=== PATIENT | female | born 1955 | race Caucasian/White ===

== ENCOUNTER 2019-05-05 07:16 | Outpatient (RCR) | payer OTHER, SELFPAY | END 2019-05-06 00:01 | LOC: ONCMED 07:16 | PROVIDERS: Family Provider Family Medicine; Visit Provider Internal Medicine Hematology & Oncology | DX: Z51.12 Encounter for antineoplastic immunotherapy (principal); C50.412 Malignant neoplasm of upper-outer quadrant of left female breast; M81.0 Age-related osteoporosis without current pathological fracture; Z17.1 Estrogen receptor negative status [ER-]; Z51.81 Encounter for therapeutic drug level monitoring; Z79.899 Other long term (current) drug therapy ==

== ENCOUNTER 2019-05-29 05:36 | Outpatient (RCR) | payer OTHER, SELFPAY ==
[2019-05-08 08:55] LABS: Basophils % 0.3 %; Eosinophils # 0.2 10^3/uL (0.0-0.8); Eosinophils % 2.7 %; Hematocrit 38.5 % (37.0-47.0); Hemoglobin 12.6 g/dL (11.5-15.3); Lymphocytes # 1.9 10^3/uL (0.8-4.8); Lymphocytes % 31.6 %; Mean Corpuscular HGB Conc 32.7 g/dL (30.0-36.0); Mean Corpuscular Hemoglobin 33.2 pg (28.0-34.0); Mean Corpuscular Volume 101.3 fL (81-99); Mean Platelet Volume 9.7 fL (7.4-10.4); Monocytes # 0.7 10^3/uL (0.2-0.9); Neutrophils # 3.2 10^3/uL (1.8-7.7); Neutrophils % 53.1 %; Nucleated Red Blood Cells % 0 %; Platelet Count 162 10^3/cmm (130-400)
[2019-05-08 09:03] LABS: Add RBC Morph No
[2019-05-08 09:12] LABS: Alanine Aminotransferase 22 U/L (0-33); Alkaline Phosphatase 102 IU/L (35-105); Anion Gap 14.6 (5-19); Aspartate Amino Transferase 30 U/L (0-32); Blood Urea Nitrogen 19 mg/dL (8-23); Calcium 9.8 mg/Dl (8.8-10.2); Carbon Dioxide 24 mmol/L (22-29); Chloride 100 mmol/L (98-107); Globulin 1.9 g/dL (1.3-4.6); Glucose 91 mg/dL (74-106); Potassium 4.6 mmol/L (3.5-5.1); Sodium 134 mmol/L (136-145); Total Bilirubin 0.3 mg/dL (0.15-1.2); Total Protein 6.9 g/dL (6.6-8.7)
[2019-05-09] MEDS: diphenhydrAMINE 25 mg Capsule PO (10:32)
[2019-05-09] MEDS: acetaminophen 325 mg Tablet 650 MG PO (10:32)
[2019-05-09] MEDS: benzonatate 100 mg Capsule 200 MG PO (10:53)
--- NOTE | 2019-05-11 23:54 | ONC FU_ITS ---
[facility] Patient Note Patient: Annalee Bal Unit #: [id number]: 1955 Dictated By: Delonte AguilarDate of Visit: May 09, 2019 Onc MED Follow-Up/Prog Note Chief Complaint: Breast cancer History of Present Illness: Mrs. Bal is a 63-year-old female who was recently diagnosed with left breast cancer. She recently underwent routine follow-up mammogram on 10/17/2017 which showed a small area in the left breast that was reported as suspicious. On 12/18/2017 she underwent stereotactic/image guided biopsy, which showed infiltrating ductal carcinoma ER/RI negative HER-2/laura positive. Mrs Bal then underwent lumpectomy with sentinel lymph node biopsy per Dr Tello on 01/10/2018. The pathology showed 1.7 x 1.6 cm tumor, with negative sentinel lymph nodes. Menarche at age 13 and first at age 15 and she has never used hormonal supplement and no family history of breast cancer. Mild peripheral neuropathy involving lower extremities especially feet more on the right side, history of disc bulge required no treatment in the past. recommended post lumpectomy/sentinel lymph node biopsy , adjuvant chemotherapy.. She has completed 4 cycles of Adriamycin Cytoxan and weekly Taxol/Herceptin ???12 starting 05/23/18 till 08/15/18 3 weekly Herceptin for 9 months was started on 09/06/2018 s/p postlumpectomy radiation therapy Completed on 10/29/2018 She reported that she fallen in the past as she was trying to step up on a sidewalk and my legs just gave out and fell on my knees.Was evaluated by orthopedics and on 08/19/2018, had right shoulder radiological studies which showed mild right AC joint arthropathy, no acute fracture. She began the Herceptin on 05/23/18. She has completed her radiation therapy and is now on single agent Herceptin. Echo done on 02/06/2019 showed ejection fraction 55% when compared with one from 09/12/2018 showed no change She has been having some lower extremity weakness for sometime now and is seeing neurology In [place] and as per patient she was told about bulging disc causing nerve compression in lower back and now nerve conduction studies of lower extremities is under consideration s/p physical therapy without much help as far as mild to mod numbness in feet is concern Ms. Bal is here today for follow-up. She is due for single agent Herceptin. Her last dose of Herceptin will be in 3 weeks. She will completed a year that time. She did have follow-up echocardiogram on 05/05/2019 which reported an ejection fraction of 55 to 60%. She denies any new concerns. She also had a DEXA scan on 05/02/2019 which she reports a bone mineral density of L1 L4 of T score -2.2 and left femoral neck bone mineral density measured T score of -1.2. Mean femoral neck bone density T score was 1.0 and right femoral neck bone mineral density was T score -0.9. The FRAX calculated 10-year probability for major osteoporotic fracture is 17.5% and osteoporotic hip fracture is 3.8%. Since 2015 bone mineral density lumbar spine has decreased by -4.1% and -1.2% in the femoral necks . Her main concern today is that she has had quite a bit of sinus congestion and cough. She states the cough is been keeping her up at night. She has had some chilling but has had no documented fever. She states that her work has been passing around the respiratory staff. She states her appetite is poor currently because she cannot taste very well due to the sinus infection. She states that she is had no trouble swallowing but her throat is little scratchy at times. She has had some productive cough of greenish sputum. She states is gotten worse the last couple days and Mucinex does not seem to be helping. She states she gets this every time of the year and I do recall her having it last winter as well. She denies nausea or vomiting. She has had no lower extremity edema. She denies any shortness of breath or orthopnea. She states overall she is doing well. She states that if she did not have sinus concerns, she would feel good. She denies any pain. She still tries to work full-time but is off the next couple of days for the holidays. She states overall she is feels that she is doing relatively well and is somewhat anxious about completing her Herceptin in 3 weeks. She states it will be a relief not to have to come to the office so frequently but then again she is not sure what she will do when she does not come the office so frequently. Her ECOG is 0. Past Medical History: Anxiety Chronic obstructive pulmonary disease Depression Enlarged thyroid Hypercholesterolemia Mitral valve prolapse Osteoporosis Past Surgical History: Tonsillectomy Tubal ligation Left breast biopsy in 2018 Portacatheter placement () in 2017 Colonoscopy in 2013 Allergies: PCN Medications: Activite EC 1 Tablet (of 1 mg) Oral daily BuPROPion HCl ER (XL) 1 Tablet (of 300 mg) Tablet SR 24 HR Oral daily Cranberry Plus Vitamin C 1 Capsule (of 4200-20-3 mg - mg - Units) Oral daily Gabapentin (300 mg) Tablet Oral t.i.d. LORazepam 1 Tablet (of 1 mg) Oral PRN Milk Thistle 1 Capsule (of 175 mg) Oral b.i.d. Ocuvite Adult Formula 1 Capsule Oral daily Pravastatin Sodium 1 Tablet (of 80 mg) Oral daily Probiotic Daily 1 Capsule Oral daily TraZODone HCl 1 - 3 Tablet (of 100 mg) Oral at bedtime Zinc Tablet Oral Family History: Ms. Bal's mother is : stroke. Ms. Bal's father at age 89: prostate cancer. Her paternal grandmother is : cervical cancer. Social History: Ms. aBl is single and she is a [employer]. Ms. Bal no longer smokes but had smoked 2.5 packs/day for 35 years. She drinks daily. She consumes 3 drinks/day 7 days/week. Review Of Symptoms: Constitutional Denies fevers, chills, night sweats, excessive fatigue or weight loss. Allergic/Immunologic No reactions. Eyes Denies significant visual changes. No diplopia. No amaurosis. ENMT Denies changes in hearing, sore throat, mouth sores, difficulty or changes in swallowing ability. Has had significant, discolored sinus drainage for about 1 week now-getting worse. Hematologic/Lymphatic Denies easy bruising or bleeding. The patient denies any tender or palpable lymph nodes. Respiratory Denies dyspnea on exertion, chest pain or hemoptysis. Denies orthopnea. Persistent coughing keeping her up at night. No wheezing currently. Cardiovascular Denies anginal chest pain, palpitations or orthopnea. Gastrointestinal Denies nausea, vomiting, diarrhea, GI bleeding, or constipation. Denies change in bowel habits and/or stool color, no heartburn or early satiety. Genitourinary (F) No hematuria, hesitancy, incontinence, vaginal bleeding, discharge or other problems with urination. Musculoskeletal right knee pain is persistent and limits her activity at times. She has not had any work up of the knee and wants to try doing water aerobics before pursing any work up. Integumentary Denies chronic rashes, inflammation, ulcerations or skin changes. Neurologic Denies headache, blurred vision, and no areas of focal weakness or numbness. Normal gait. No sensory problems. Psychiatric Denies insomnia, depression, sulma or mood swings. Vital Signs: Performed on May 09, 2019 09:12 Height - 71.00 in Weight - 174.4 lbs (LOW) BSA - 1.99 sq.m BMI - 24.32 Temperature - 98.6 F Pulse - 81 /min Respiration - 14 /min BP - 136/72 mm(hg) O2 Sat - 96 % Pain - 0 Fatigue - 6,1 - No physically strenuous activity, but ambulatory and able to carry out light or sedentary work (e.g. office work, light house work). (ECOG) Physical Examination: Constitutional Alert, oriented, no acute distress. Skin pink, warm and dry. Head Normocephalic; atraumatic. Eyes Conjunctivae and sclerae are clear and without icterus. Pupils are reactive and equal. Neck Supple without masses or thyromegaly. No jugular venous distension. Hematologic/Lymphatic No petechiae or purpura. No tender or palpable lymph nodes in the cervical or supraclavicular areas. Respiratory Lungs are diminished to auscultation without rhonchi or wheezing currently. Cardiovascular Regular rate and rhythm of heart without murmurs,clicks, gallops or rubs. Chest Right subclavian venous access device is unremarkable Back/Spine Non-tender to palpation. Extremities No visible deformities, no cyanosis, clubbing or edema. Musculoskeletal No tenderness or swelling, normal range of motion without obvious weakness. Integumentary No rashes or lesions. Neurologic No sensory or motor deficits, normal cerebellar function, normal gait. Psychiatric Alert and oriented times three. Coherent speech. Verbalizes understanding of our discussions today. Laboratory:Test performed on May 08, 2019 08:15 Glucose 91 mg/dL BUN 19 mg/dL Creatinine 0.9 mg/dL Cr Clearance (Est) 83.20 mL/min Sodium 134 mmol/L Potassium 4.6 mmol/L Chloride 100 mmol/L CO2 24 mmol/L Calcium 9.8 mg/dL Protein, Total 6.9 g/dL Albumin 5.0 g/dL Globulin 1.9 g/dL A/G Ratio 0.3 Absolute Value Bilirubin, Total 0.3 mg/dL Alkaline Phosphatase 102 IU/L AST (SGOT) 30 IU/L ALT (SGPT) 22 IU/L WBC 6.0 10^9/L RBC 3.80 10^12/L HGB 12.6 g/dL HCT 38.5 % MCV 101.3 fl MCH 33.2 pg MCHC 32.7 g/dL RDW 13.0 % Platelet Count 162 10^9/L MPV 9.7 fL Neutrophils (Gran) 3.2 10^9/L Lymphocytes 1.9 10^9/L Monocytes 0.7 10^9/L Eosinophils 0.2 10^9/L Basophils 0.0 10^9/L Manual Lymphocytes 31.6 % Manual Monocytes 12.0 % Manual Eosinophils 2.7 % Manual Basophils 0.3 % NRBCs 0.0 /100 WBC Test performed on Dec 27, 2018 08:10 TSH 1.28 uIU/mL Vitamin D (25-Hydroxy), Total 55 ng/mL Impression: Infiltrating ductal carcinoma off left breast status post lumpectomy with sentinel lymph node biopsy done on 01/10/2018, final pathology report showed size of tumor 1.7 x 1.6 cm, T1c, 0 out of 2 sentinel lymph nodes showed metastatic disease N0 Ki-67 31%, ER negative, RI negative, HER-2/laura 3+ As per mammogram done on 10/17/2017 showed left breast nodule measured 13 mm and ultrasound confirmed mass being 1 x 1.1 cm in size. s/p Cytoxan/Adriamycin x4 followed by Taxol/Herceptin x 12 weeks completed on 08/15/18 She began her first cycle of Cytoxan/Adriamycin on 02/28/2018 requested MRI of the brain due to persistent headaches, off balance/wobbly gait , and blurry vision. CANCER TREATMENT HISTORY: 1. Dose dense Adriamycin Cytoxan for 4 cycles beginning on 02/28/18. 2. 12 weeks of paclitaxel/Herceptin beginning 05/23/2018. completed 12 weeks of paclitaxel/Herceptin on 08/15/2018 3 Started on 3 weekly Herceptin for 9 months on 09/06/2018 Follow-up echocardiogram done on 05/05/2019 showed normal left ventricle size and ejection fraction, 55-602% compared to previous study on 09/2018, no significant change. She has tolerated the Herceptin well. However she does present today with acute sinus infection/URI. Plan: 1. Proceed with single agent Herceptin today. She will complete her treatment plan at the end of May 2019. 2. I have sent in a prescription for Tessalon Perles 200 mg 3 times daily. She could have 1 here in the clinic today if she develops coughing while here. I also have asked her to do the Levaquin 500 mg daily. She states this is worked wonders for her in the past. 3. May 08, 2019 labs reviewed in detail and discussed with Mrs. Bal and a copy was given to her. WBC 6.0, hemoglobin 12.6, platelets 262,000 ANC is 3200 potassium 3.4 creatinine 0.9 LFTs are all normal. 4. We did discuss her echocardiogram and her bone density copies of which were given to her. Her echocardiogram was unchanged and most likely will need to get another one at her 3-month follow-up just for comparison. We did discuss her bone density at length. Most likely she is going to need treatment for this. She will see Dr. Lundberg back in 3 weeks at which time we can decide if she wants to do Prolia or Reclast or another agent. 4. We will plan to see her back in 3 weeks with CBC and CMP. 5. Ms. Cespedes was instructed to contact us in the interim for questions or problems arise. 6. She is having knee pain but does not want to get it evaluated just yet. She wants to try water aerobics and light exercise. She states she has not had any workup on the knee anastasiia has had physical therapy which did not help at all . Signed By: Delonte Aguilar-, [facility] Aurora Lundberg MD <<Signature on File>>
[2019-05-28 13:42] LABS: Basophils % 0.2 %; Eosinophils % 0.6 %; Hematocrit 34.6 % (37.0-47.0); Hemoglobin 11.4 g/dL (11.5-15.3); Lymphocytes # 1.3 10^3/uL (0.8-4.8); Lymphocytes % 21.5 %; Mean Corpuscular HGB Conc 32.9 g/dL (30.0-36.0); Mean Corpuscular Hemoglobin 32.8 pg (28.0-34.0); Mean Corpuscular Volume 99.4 fL (81-99); Mean Platelet Volume 9.7 fL (7.4-10.4); Monocytes # 0.5 10^3/uL (0.2-0.9); Monocytes % 7.9 %; Neutrophils # 4.3 10^3/uL (1.8-7.7); Neutrophils % 69.5 %; Nucleated Red Blood Cells % 0 %; Platelet Count 179 10^3/cmm (130-400); Red Blood Count 3.48 10^6/uL (4.1-5.3); Red Cell Distribution Width 13.1 % (12.1-15.1); White Blood Count 6.2 10^3/uL (4.0-10.0)
[2019-05-28 13:56] LABS: Alanine Aminotransferase 22 U/L (0-33); Albumin Level 4.2 g/dL (3.5-5.2); Alkaline Phosphatase 97 IU/L (35-105); Anion Gap 11.2 (5-19); Aspartate Amino Transferase 27 U/L (0-32); Blood Urea Nitrogen 15 mg/dL (8-23); Calcium 9.6 mg/Dl (8.8-10.2); Carbon Dioxide 26 mmol/L (22-29); Chloride 102 mmol/L (98-107); Globulin 2.8 g/dL (1.3-4.6); Glomerular Filtration Rate 72.2 mL/min (90-130); Glucose 114 mg/dL (74-106); Potassium 4.2 mmol/L (3.5-5.1); Sodium 135 mmol/L (136-145); Total Bilirubin 0.3 mg/dL (0.15-1.2)
[2019-05-29] MEDS: sodium chloride 0.9% 250 ML 75 ML IV (11:40)
[2019-05-29] MEDS: acetaminophen 325 mg Tablet 650 MG PO (11:40)
[2019-05-29] MEDS: diphenhydrAMINE 25 mg Capsule PO (11:45)
--- NOTE | 2019-05-29 13:13 | ONC FU_ITS ---
Dr. Lundberg follow up note Patient: Annalee Bal Unit #: [id number]: 1955 Dicatated By: Aurora Lundberg M.D.Date of Visit:May 29, 2019 Onc Med Follow-up/Prog Note History of Present Illness: Mrs. Bal is a 63-year-old female who was recently diagnosed with left breast cancer. She recently underwent routine follow-up mammogram on 10/17/2017 which showed a small area in the left breast that was reported as suspicious. On 12/18/2017 she underwent stereotactic/image guided biopsy, which showed infiltrating ductal carcinoma ER/WI negative HER-2/laura positive. Mrs Bal then underwent lumpectomy with sentinel lymph node biopsy per Dr Tello on 01/10/2018. The pathology showed 1.7 x 1.6 cm tumor, with negative sentinel lymph nodes. Menarche at age 13 and first at age 15 and she has never used hormonal supplement and no family history of breast cancer. Mild peripheral neuropathy involving lower extremities especially feet more on the right side, history of disc bulge required no treatment in the past. recommended post lumpectomy/sentinel lymph node biopsy , adjuvant chemotherapy.. She has completed 4 cycles of Adriamycin Cytoxan and weekly Taxol/Herceptin ???12 starting 05/23/18 till 08/15/18 3 weekly Herceptin for 9 months was started on 09/06/2018 And completed on 05/29/2019 s/p postlumpectomy radiation therapy Completed on 10/29/2018 She reported that she fallen in the past as she was trying to step up on a sidewalk and my legs just gave out and fell on my knees.Was evaluated by orthopedics and on 08/19/2018, had right shoulder radiological studies which showed mild right AC joint arthropathy, no acute fracture. She began the Herceptin on 05/23/18. She has completed her radiation therapy and is now on single agent Herceptin. Echo done on 02/06/2019 showed ejection fraction 55% when compared with one from 09/12/2018 showed no change She has been having some lower extremity weakness for sometime now and is seeing neurology In [place] and as per patient she was told about bulging disc causing nerve compression in lower back and now nerve conduction studies of lower extremities is under consideration s/p physical therapy without much help as far as mild to mod numbness in feet is concern She did have follow-up echocardiogram on 05/05/2019 which reported an ejection fraction of 55 to 60%. She also had a DEXA scan on 05/02/2019 which she reports a bone mineral density of L1 L4 of T score -2.2 and left femoral neck bone mineral density measured T score of -1.2. Mean femoral neck bone density T score was 1.0 and right femoral neck bone mineral density was T score -0.9. The FRAX calculated 10-year probability for major osteoporotic fracture is 17.5% and osteoporotic hip fracture is 3.8%. Since 2015 bone mineral density lumbar spine has decreased by -4.1% and -1.2% in the femoral necks . Came for follow-up, denies any specific complaint, no fever or chills, no nausea or vomiting, no diarrhea constipation, no new bony pains, sinus discharge is improving too. No leg swelling, no shortness of breath or palpitation. Tolerating Herceptin well Medications: Activite EC 1 Tablet (of 1 mg) Oral daily, BuPROPion HCl ER (XL) 1 Tablet (of 300 mg) Tablet SR 24 HR Oral daily, Cranberry Plus Vitamin C 1 Capsule (of 4200-20-3 mg - mg - Units) Oral daily, Gabapentin (300 mg) Tablet Oral t.i.d., LORazepam 1 Tablet (of 1 mg) Oral PRN, Milk Thistle 1 Capsule (of 175 mg) Oral b.i.d., Ocuvite Adult Formula 1 Capsule Oral daily, Pravastatin Sodium 1 Tablet (of 80 mg) Oral daily, Probiotic Daily 1 Capsule Oral daily, TraZODone HCl 1 - 3 Tablet (of 100 mg) Oral at bedtime, Zinc Tablet Oral Allergies: PCN Review of Systems: Constitutional - Appetite is fair and weight is stable. No fever, chills, hot flashes, or night sweats. Energy level is good, ENMT - Negative for sinus congestion and drainage. No mouth sores. No sore throat or difficulty swallowing, Hematologic/Lymphatic - No abnormal bruising or bleeding, Respiratory - No shortness of breath. No cough. No pleuritic pain or hemoptysis, Cardiovascular - No angina pain. No palpitations, Gastrointestinal - No nausea or vomiting. No heartburn or acid reflux. No diarrhea or constipation. No blood in the stool or black stools, Genitourinary (F) - No dysuria or hematuria. No urinary frequency. No urgency or incontinence, Musculoskeletal - Positive for bilateral knee pain, Integumentary - Pt denies edema, Neurologic - No headache or dizziness. Pt reports neuropathy in feet, Psychiatric - Patient has some anxiety, no depression. Some insomnia. Vital Signs: Performed on May 29, 2019 09:26 Height - 71.00 in Weight - 177.2 lbs (HIGH) BSA - 2.00 sq.m BMI - 24.71 Temperature - 98.0 F (LOW) Pulse - 73 /min Respiration - 20 /min BP - 142/72 mm(hg) (HIGH) O2 Sat - 98 % Pain - 6 Performance Status: 0 - Fully active, able to carry on all predisease activities without restrictions. (ECOG) Physical Examination: Respiratory - Lungs are clear to auscultation without rhonchi or wheezing, Cardiovascular - Regular rate and rhythm of heart, Extremities - no edema. Lab/Imaging: Test performed on May 28, 2019 13:15 Alkaline Phosphatase 97 IU/L Sodium 135 mmol/L Potassium 4.2 mmol/L Chloride 102 mmol/L CO2 26 mmol/L Anion Gap 11.2 BUN 15 mg/dL Creatinine 0.8 mg/dL Cr Clearance (Est) 93.6100 mL/min eGFR 72.2 mL/min Glucose 114 mg/dL Calcium 9.6 mg/Dl Protein, Total 7.0 g/dL Albumin 4.2 g/dL Globulin 2.8 g/dL Bilirubin, Total 0.3 mg/dL ALT (SGPT) 22 U/L AST (SGOT) 27 U/L WBC 6.2 10 3/uL RBC 3.48 10 6/uL HGB 11.4 g/dL HCT 34.6 % MCV 99.4 fL MCH 32.8 pg MCHC 32.9 g/dL RDW 13.1 % Platelet Count 179 10 3/cmm MPV 9.7 fL Neutrophils 4.3 10 3/uL Lymphocytes 1.3 10 3/uL Monocytes 0.5 10 3/uL Eosinophils 0.0 10 3/uL Basophils 0.0 10 3/uL Neutrophil % 69.5 % Lymphocyte % 21.5 % Monocyte % 7.9 % Eosinophil % 0.6 % Basophils % 0.2 % Test performed on May 08, 2019 08:15 A/G Ratio 0.3 Absolute Value Manual Lymphocytes 31.6 % Manual Monocytes 12.0 % Manual Eosinophils 2.7 % Manual Basophils 0.3 % NRBCs 0.0 /100 WBC Test performed on Dec 27, 2018 08:10 TSH 1.28 uIU/mL Vitamin D (25-Hydroxy), Total 55 ng/mL Impression: Infiltrating ductal carcinoma off left breast status post lumpectomy with sentinel lymph node biopsy done on 01/10/2018, final pathology report showed size of tumor 1.7 x 1.6 cm, T1c, 0 out of 2 sentinel lymph nodes showed metastatic disease N0 Ki-67 31%, ER negative, WI negative, HER-2/laura 3+ As per mammogram done on 10/17/2017 showed left breast nodule measured 13 mm and ultrasound confirmed mass being 1 x 1.1 cm in size. s/p Cytoxan/Adriamycin x4 followed by Taxol/Herceptin x 12 weeks completed on 08/15/18 She began her first cycle of Cytoxan/Adriamycin on 02/28/2018 requested MRI of the brain due to persistent headaches, off balance/wobbly gait , and blurry vision. CANCER TREATMENT HISTORY: 1. Dose dense Adriamycin Cytoxan for 4 cycles beginning on 02/28/18. 2. 12 weeks of paclitaxel/Herceptin beginning 05/23/2018. completed 12 weeks of paclitaxel/Herceptin on 08/15/2018 3 Started on 3 weekly Herceptin for 9 months on 09/06/2018 And completed year-long Herceptin therapy on 05/29/2019 Follow-up echocardiogram done on 05/05/2019 showed normal left ventricle size and ejection fraction, 55-602% compared to previous study on 09/2018, no significant change. Plan: Discussed with patient regarding her labs white blood count 6.2 hemoglobin 11.4 crit 34.8 platelets 179,000 CMP within normal limits Clinically, patient doing well with no signs symptoms suggestive of recurrence of disease, now being treated with adjuvant Herceptin therapy. We'll proceed with next and final dose of year-long Herceptin therapy today and then she will return to clinic in 3 months with CBC CMP in the meantime continue with port maintenance on monthly basis. As far as osteopenia pain is concern , we'll start her on vitamin D/calcium supplement, role of biphosphonate also discussed patient was her try vitamin D and calcium and a regular exercise if with that her loss and on improve and she will consider biphosphonate. Signed By: Aurora Lundberg M.D. <<Signature on File>>
== END 2019-06-06 23:59 | disposition home or self-care (01) ==
LOC: ONCMED 05:36
PROVIDERS: Internal Medicine Medical Oncology; Family Provider Family Medicine; Visit Provider Internal Medicine Hematology & Oncology
DX: Z51.12 Encounter for antineoplastic immunotherapy (principal); C50.412 Malignant neoplasm of upper-outer quadrant of left female breast; Z17.1 Estrogen receptor negative status [ER-]; F41.8 Other specified anxiety disorders; J44.9 Chronic obstructive pulmonary disease, unspecified; E78.00 Pure hypercholesterolemia, unspecified; I34.1 Nonrheumatic mitral (valve) prolapse; M81.0 Age-related osteoporosis without current pathological fracture; F10.20 Alcohol dependence, uncomplicated; Z87.891 Personal history of nicotine dependence; Z91.81 History of falling; Z92.3 Personal history of irradiation
CPT/HCPCS: 36591; 80053; 85025; 96413; 99214; J7050; J9355

== ENCOUNTER 2019-06-27 05:49 | Outpatient (RCR) | payer OTHER, SELFPAY | END 2019-07-05 23:59 | disposition home or self-care (01) | LOC: ONCMED 05:49 | PROVIDERS: Family Provider Family Medicine; PCP Nurse Practitioner Family; Visit Provider Internal Medicine Hematology & Oncology | DX: Z45.2 Encounter for adjustment and management of vascular access device (principal) | CPT/HCPCS: 96523 ==

== ENCOUNTER 2019-07-25 06:09 | Outpatient (RCR) | payer OTHER, SELFPAY | END 2019-08-05 23:59 | disposition home or self-care (01) | LOC: ONCMED 06:09 | PROVIDERS: Family Provider Family Medicine; PCP Nurse Practitioner Family; Visit Provider Internal Medicine Hematology & Oncology | DX: Z45.2 Encounter for adjustment and management of vascular access device (principal) | CPT/HCPCS: 96523 ==

== ENCOUNTER 2019-09-02 06:59 | Outpatient (CLI) | payer OTHER, SELFPAY ==
[2019-09-02 08:25] LABS: Basophils % 0.6 %; Eosinophils # 0.2 10^3/uL (0.0-0.8); Eosinophils % 2.5 %; Hematocrit 39.8 % (37.0-47.0); Lymphocytes # 1.5 10^3/uL (0.8-4.8); Lymphocytes % 22.8 %; Mean Corpuscular HGB Conc 32.7 g/dL (30.0-36.0); Mean Corpuscular Hemoglobin 32.6 pg (28.0-34.0); Mean Corpuscular Volume 99.7 fL (81-99); Mean Platelet Volume 9.8 fL (7.4-10.4); Monocytes # 0.7 10^3/uL (0.2-0.9); Monocytes % 10.4 %; Neutrophils # 4.3 10^3/uL (1.8-7.7); Neutrophils % 63.3 %; Nucleated Red Blood Cells % 0 %; Platelet Count 179 10^3/cmm (130-400); Red Blood Count 3.99 10^6/uL (4.1-5.3); Red Cell Distribution Width 13.1 % (12.1-15.1); White Blood Count 6.7 10^3/uL (4.0-10.0)
[2019-09-02 08:42] LABS: Alanine Aminotransferase 26 U/L (0-33); Albumin Level 4.4 g/dL (3.5-5.2); Alkaline Phosphatase 87 IU/L (35-105); Anion Gap 17.6 (5-19); Aspartate Amino Transferase 29 U/L (0-32); Blood Urea Nitrogen 16 mg/dL (8-23); Calcium 9.6 mg/dL (8.5-10.5); Carbon Dioxide 24 mmol/L (22-29); Chloride 99 mmol/L (98-107); Globulin 2.8 g/dL (1.3-4.6); Glomerular Filtration Rate 72.2 mL/min (90-130); Glucose 118 mg/dL (65-115); Osmolality Calculated 279 mOsm/kg (285-295); Potassium 4.6 mmol/L (3.5-5.1); Sodium 136 mmol/L (136-145); Total Bilirubin 0.2 mg/dL (0.15-1.2); Total Protein 7.2 g/dL (6.6-8.7)
== END 2019-09-02 07:00 | disposition home or self-care (01) ==
PROVIDERS: Family Provider Family Medicine; PCP Nurse Practitioner Family; Visit Provider Internal Medicine Hematology & Oncology
DX: C50.412 Malignant neoplasm of upper-outer quadrant of left female breast (principal); T45.1X5A Adverse effect of antineoplastic and immunosuppressive drugs, initial encounter; D70.1 Agranulocytosis secondary to cancer chemotherapy; K59.03 Drug induced constipation; D64.9 Anemia, unspecified
CPT/HCPCS: 36591; 80053; 85025

== ENCOUNTER 2019-09-03 13:21 | Outpatient (CLI) | payer OTHER, SELFPAY ==
--- NOTE | 2019-09-03 14:15 | ONC FU_ITS ---
Dr. Lundberg follow up note Patient: Annalee Bal Unit #: [id number]: 1955 Dicatated By: Aurora Lundberg M.D.Date of Visit:Sep 03, 2019 Onc Med Follow-up/Prog Note History of Present Illness: Mrs. Bal is a 63-year-old female who was recently diagnosed with left breast cancer. She recently underwent routine follow-up mammogram on 10/17/2017 which showed a small area in the left breast that was reported as suspicious. On 12/18/2017 she underwent stereotactic/image guided biopsy, which showed infiltrating ductal carcinoma ER/[place] negative HER-2/laura positive. Mrs Bal then underwent lumpectomy with sentinel lymph node biopsy per Dr Tello on 01/10/2018. The pathology showed 1.7 x 1.6 cm tumor, with negative sentinel lymph nodes. Menarche at age 13 and first at age 15 and she has never used hormonal supplement and no family history of breast cancer. Mild peripheral neuropathy involving lower extremities especially feet more on the right side, history of disc bulge required no treatment in the past. recommended post lumpectomy/sentinel lymph node biopsy , adjuvant chemotherapy.. She has completed 4 cycles of Adriamycin Cytoxan and weekly Taxol/Herceptin ???12 starting 05/23/18 till 08/15/18 3 weekly Herceptin for 9 months was started on 09/06/2018 And completed on 05/29/2019 s/p postlumpectomy radiation therapy Completed on 10/29/2018 She reported that she fallen in the past as she was trying to step up on a sidewalk and my legs just gave out and fell on my knees.Was evaluated by orthopedics and on 08/19/2018, had right shoulder radiological studies which showed mild right AC joint arthropathy, no acute fracture. She began the Herceptin on 05/23/18. She has completed her radiation therapy and is now on single agent Herceptin. Echo done on 02/06/2019 showed ejection fraction 55% when compared with one from 09/12/2018 showed no change She has been having some lower extremity weakness for sometime now and is seeing neurology In [place] and as per patient she was told about bulging disc causing nerve compression in lower back and now nerve conduction studies of lower extremities is under consideration s/p physical therapy without much help as far as mild to mod numbness in feet is concern She did have follow-up echocardiogram on 05/05/2019 which reported an ejection fraction of 55 to 60%. She also had a DEXA scan on 05/02/2019 which she reports a bone mineral density of L1 L4 of T score -2.2 and left femoral neck bone mineral density measured T score of -1.2. Mean femoral neck bone density T score was 1.0 and right femoral neck bone mineral density was T score -0.9. The FRAX calculated 10-year probability for major osteoporotic fracture is 17.5% and osteoporotic hip fracture is 3.8%. Since 2015 bone mineral density lumbar spine has decreased by -4.1% and -1.2% in the femoral necks . Came for follow-up, denies any specific complaints, no fever or chills, no diarrhea constipation, no new bony pains, appetite is good Medications: Activite EC 1 Tablet (of 1 mg) Oral daily, BuPROPion HCl ER (XL) 1 Tablet (of 300 mg) Tablet SR 24 HR Oral daily, Cranberry Plus Vitamin C 1 Capsule (of 4200-20-3 mg - mg - Units) Oral daily, Gabapentin (300 mg) Tablet Oral t.i.d., Glucosamine Tablet Oral, LORazepam 1 Tablet (of 1 mg) Oral PRN, Milk Thistle 1 Capsule (of 175 mg) Oral b.i.d., Ocuvite Adult Formula 1 Capsule Oral daily, Pravastatin Sodium 1 Tablet (of 80 mg) Oral daily, Probiotic Daily 1 Capsule Oral daily, TraZODone HCl 1 - 3 Tablet (of 100 mg) Oral at bedtime Allergies: PCN Review of Systems: Constitutional - Appetite is fair and weight is stable. No fever, chills, hot flashes, or night sweats. Energy level is good, ENMT - Negative for sinus congestion and drainage. No mouth sores. No sore throat or difficulty swallowing, Hematologic/Lymphatic - No abnormal bruising or bleeding, Respiratory - No shortness of breath. No cough. No pleuritic pain or hemoptysis, Cardiovascular - No angina pain. No palpitations, Gastrointestinal - No nausea or vomiting. No heartburn or acid reflux. No diarrhea or constipation. No blood in the stool or black stools, Genitourinary (F) - No dysuria or hematuria. No urinary frequency. No urgency or incontinence, Musculoskeletal - Positive for bilateral knee pain, Integumentary - Pt denies edema, Neurologic - No headache or dizziness. Pt reports neuropathy in feet, Psychiatric - Patient has some anxiety, no depression. Some insomnia. Vital Signs: Performed on Sep 03, 2019 13:39 Height - 71.00 in Weight - 173.6 lbs (LOW) BSA - 1.99 sq.m BMI - 24.21 Temperature - 97.8 F (LOW) Pulse - 87 /min Respiration - 19 /min BP - 136/74 mm(hg) O2 Sat - 95 % (LOW) Pain - 3 Performance Status: 0 - Fully active, able to carry on all predisease activities without restrictions. (ECOG) Physical Examination: Respiratory - Lungs are clear, Cardiovascular - denies tachycardia or palpitation, Extremities - no visible edema or rash. Lab/Imaging: Test performed on May 28, 2019 13:15 Alkaline Phosphatase 97 IU/L Sodium 135 mmol/L Potassium 4.2 mmol/L Chloride 102 mmol/L CO2 26 mmol/L Anion Gap 11.2 BUN 15 mg/dL Creatinine 0.8 mg/dL Cr Clearance (Est) 93.6100 mL/min eGFR 72.2 mL/min Glucose 114 mg/dL Calcium 9.6 mg/Dl Protein, Total 7.0 g/dL Albumin 4.2 g/dL Globulin 2.8 g/dL Bilirubin, Total 0.3 mg/dL ALT (SGPT) 22 U/L AST (SGOT) 27 U/L WBC 6.2 10 3/uL RBC 3.48 10 6/uL HGB 11.4 g/dL HCT 34.6 % MCV 99.4 fL MCH 32.8 pg MCHC 32.9 g/dL RDW 13.1 % Platelet Count 179 10 3/cmm MPV 9.7 fL Neutrophils 4.3 10 3/uL Lymphocytes 1.3 10 3/uL Monocytes 0.5 10 3/uL Eosinophils 0.0 10 3/uL Basophils 0.0 10 3/uL Neutrophil % 69.5 % Lymphocyte % 21.5 % Monocyte % 7.9 % Eosinophil % 0.6 % Basophils % 0.2 % Test performed on May 08, 2019 08:15 A/G Ratio 0.3 Absolute Value Manual Lymphocytes 31.6 % Manual Monocytes 12.0 % Manual Eosinophils 2.7 % Manual Basophils 0.3 % NRBCs 0.0 /100 WBC Impression: Infiltrating ductal carcinoma off left breast status post lumpectomy with sentinel lymph node biopsy done on 01/10/2018, final pathology report showed size of tumor 1.7 x 1.6 cm, T1c, 0 out of 2 sentinel lymph nodes showed metastatic disease N0 Ki-67 31%, ER negative, [place] negative, HER-2/laura 3+ As per mammogram done on 10/17/2017 showed left breast nodule measured 13 mm and ultrasound confirmed mass being 1 x 1.1 cm in size. s/p Cytoxan/Adriamycin x4 followed by Taxol/Herceptin x 12 weeks completed on 08/15/18 She began her first cycle of Cytoxan/Adriamycin on 02/28/2018 requested MRI of the brain due to persistent headaches, off balance/wobbly gait , and blurry vision. CANCER TREATMENT HISTORY: 1. Dose dense Adriamycin Cytoxan for 4 cycles beginning on 02/28/18. 2. 12 weeks of paclitaxel/Herceptin beginning 05/23/2018. completed 12 weeks of paclitaxel/Herceptin on 08/15/2018 3 Started on 3 weekly Herceptin for 9 months on 09/06/2018 And completed year-long Herceptin therapy on 05/29/2019 Follow-up echocardiogram done on 05/05/2019 showed normal left ventricle size and ejection fraction, 55-602% compared to previous study on 09/2018, no significant change. Plan: Discussed with patient regarding her labs white blood count 6.7 hemoglobin 13 crit 39.8 platelets 179,000 CMP within normal limits Clinically, patient is doing well with no signs symptoms suggestive of recurrence of disease her follow-up lab work looks reasonable and in normal range. She will return to clinic in 4 months with CBC CMP in the meantime she will continue monthly port maintenance and will also schedule her for follow-up mammogram prior to next visit. Signed By: Aurora Lundberg M.D. <<Signature on File>>
== END 2019-09-03 13:22 | disposition home or self-care (01) ==
LOC: ONCMED 13:21
PROVIDERS: PCP Nurse Practitioner Family; Visit Provider Internal Medicine Hematology & Oncology
DX: Z85.3 Personal history of malignant neoplasm of breast (principal); Z08 Encounter for follow-up examination after completed treatment for malignant neoplasm; Z92.21 Personal history of antineoplastic chemotherapy; Z95.828 Presence of other vascular implants and grafts
CPT/HCPCS: G0463

== ENCOUNTER 2019-10-01 08:53 | Outpatient (CLI) | payer OTHER, SELFPAY | END 2019-10-01 08:54 | disposition home or self-care (01) | LOC: ONCMED 08:55 | PROVIDERS: PCP Nurse Practitioner Family; Visit Provider Internal Medicine Hematology & Oncology | DX: Z45.2 Encounter for adjustment and management of vascular access device (principal) | CPT/HCPCS: 96523 ==

== ENCOUNTER 2019-10-31 08:10 | Outpatient (CLI) | payer OTHER, MEDICARE, SELFPAY | END 2019-10-31 08:11 | disposition home or self-care (01) | LOC: ONCMED 08:10 | PROVIDERS: PCP Nurse Practitioner Family; Visit Provider Internal Medicine Hematology & Oncology | DX: Z45.2 Encounter for adjustment and management of vascular access device (principal) | CPT/HCPCS: 96523 ==

== ENCOUNTER 2019-11-27 08:01 | Outpatient (CLI) | payer MEDICARE, SELFPAY | END 2019-11-27 08:02 | disposition home or self-care (01) | LOC: ONCMED 08:07 | PROVIDERS: PCP Nurse Practitioner Family; Visit Provider Internal Medicine Hematology & Oncology | DX: Z45.2 Encounter for adjustment and management of vascular access device (principal) | CPT/HCPCS: 96523 ==

== ENCOUNTER 2019-12-25 07:45 | Outpatient (CLI) | payer MEDICARE, SELFPAY ==
--- NOTE | 2019-12-25 07:51 | MM_ITS ---
WS: [id number] BILATERAL DIAGNOSTIC DIGITAL MAMMOGRAM WITH CAD HISTORY: HX OF BREAST CA COMPARISON: 12/20/2018, 06/21/2018 and 01/10/2018 Bilateral CC and MLO views submitted. Computer aided detection analyzed. Breast composition: The breasts are heterogeneously dense, which may obscure small masses. No suspici ous masses, microcalcifications or architectural distortion. Postoperative cavity upper outer quadran t of the LEFT breast continues to improve slowly over time. Developing dystrophic calcifications. Arc hitectural distortion is stable with no increasing soft tissue. MM/[place] [id number] IMPRESSION: BI-RADS: 2-Benign FOLLOW UP: 1 Year Follow-up
[2019-12-25 08:59] LABS: Basophils % 0.5 %; Eosinophils # 0.3 10^3/uL (0.0-0.8); Eosinophils % 4.1 %; Hematocrit 40.6 % (37.0-47.0); Hemoglobin 13.2 g/dL (11.5-15.3); Lymphocytes # 1.4 10^3/uL (0.8-4.8); Lymphocytes % 20.7 %; Mean Corpuscular HGB Conc 32.5 g/dL (30.0-36.0); Mean Corpuscular Volume 101.5 fL (81-99); Monocytes # 0.5 10^3/uL (0.2-0.9); Monocytes % 7.8 %; Neutrophils # 4.33 10^3/uL (1.8-7.7); Neutrophils % 66.6 %; Nucleated Red Blood Cells % 0 %; Platelet Count 195 10^3/cmm (130-400); Red Cell Distribution Width 12.5 % (12.1-15.1); White Blood Count 6.5 10^3/uL (4.0-10.0)
[2019-12-25 09:11] LABS: Alanine Aminotransferase 31 U/L (0-33); Albumin Level 4.5 g/dL (3.5-5.2); Alkaline Phosphatase 86 IU/L (35-105); Anion Gap 12.4 (5-19); Aspartate Amino Transferase 28 U/L (0-32); Blood Urea Nitrogen 16 mg/dL (8-23); Calcium 9.4 mg/dL (8.5-10.5); Carbon Dioxide 26 mmol/L (22-29); Chloride 102 mmol/L (98-107); Globulin 2.8 g/dL (1.3-4.6); Glomerular Filtration Rate 62.8 mL/min (90-130); Glucose 115 mg/dL (65-115); Osmolality Calculated 279 mOsm/kg (285-295); Potassium 4.4 mmol/L (3.5-5.1); Sodium 136 mmol/L (136-145); Total Bilirubin 0.2 mg/dL (0.15-1.2); Total Protein 7.3 g/dL (6.6-8.7)
== END 2019-12-25 07:46 | disposition home or self-care (01) ==
LOC: ONCMED 07:48
PROVIDERS: PCP Nurse Practitioner Family; Visit Provider Internal Medicine Hematology & Oncology
DX: C50.412 Malignant neoplasm of upper-outer quadrant of left female breast (principal); Z17.1 Estrogen receptor negative status [ER-]; D64.9 Anemia, unspecified; K59.03 Drug induced constipation; D70.2 Other drug-induced agranulocytosis
CPT/HCPCS: 36591; 77066; 80053; 85025

== ENCOUNTER 2020-01-02 05:44 | Outpatient (CLI) | payer MEDICARE, SELFPAY ==
--- NOTE | 2020-01-02 16:21 | ONC FU_ITS ---
Dr. Lundberg follow up note Patient: Annalee Bal Unit #: [id number]: 1955 Dicatated By: Aurora Lundberg M.D.Date of Visit:Jan 02, 2020 Onc Med Follow-up/Prog Note History of Present Illness: Mrs. Bal is a 64-year-old female who was recently diagnosed with left breast cancer. She recently underwent routine follow-up mammogram on 10/17/2017 which showed a small area in the left breast that was reported as suspicious. On 12/18/2017 she underwent stereotactic/image guided biopsy, which showed infiltrating ductal carcinoma ER/[place] negative HER-2/laura positive. Mrs Bal then underwent lumpectomy with sentinel lymph node biopsy per Dr Tello on 01/10/2018. The pathology showed 1.7 x 1.6 cm tumor, with negative sentinel lymph nodes. Menarche at age 13 and first at age 15 and she has never used hormonal supplement and no family history of breast cancer. Mild peripheral neuropathy involving lower extremities especially feet more on the right side, history of disc bulge required no treatment in the past. recommended post lumpectomy/sentinel lymph node biopsy , adjuvant chemotherapy.. She has completed 4 cycles of Adriamycin Cytoxan and weekly Taxol/Herceptin ???12 starting 05/23/18 till 08/15/18 3 weekly Herceptin for 9 months was started on 09/06/2018 And completed on 05/29/2019 s/p postlumpectomy radiation therapy Completed on 10/29/2018 She reported that she fallen in the past as she was trying to step up on a sidewalk and my legs just gave out and fell on my knees.Was evaluated by orthopedics and on 08/19/2018, had right shoulder radiological studies which showed mild right AC joint arthropathy, no acute fracture. She began the Herceptin on 05/23/18. She has completed her radiation therapy and is now on single agent Herceptin. Echo done on 02/06/2019 showed ejection fraction 55% when compared with one from 09/12/2018 showed no change She has been having some lower extremity weakness for sometime now and is seeing neurology In [place] and as per patient she was told about bulging disc causing nerve compression in lower back and now nerve conduction studies of lower extremities is under consideration s/p physical therapy without much help as far as mild to mod numbness in feet is concern She did have follow-up echocardiogram on 05/05/2019 which reported an ejection fraction of 55 to 60%. She also had a DEXA scan on 05/02/2019 which she reports a bone mineral density of L1 L4 of T score -2.2 and left femoral neck bone mineral density measured T score of -1.2. Mean femoral neck bone density T score was 1.0 and right femoral neck bone mineral density was T score -0.9. The FRAX calculated 10-year probability for major osteoporotic fracture is 17.5% and osteoporotic hip fracture is 3.8%. Since 2015 bone mineral density lumbar spine has decreased by -4.1% and -1.2% in the femoral necks . Follow-up mammogram done on December 25, 2019 came back BI-RADS 2 e.g. benign Came for follow-up, denies any specific complaints, no fever chills, no nausea or vomiting, no diarrhea constipation except bilateral feet mild numbness which is stable, patient says she has tried physical therapy without much help otherwise. Medications: Activite EC 1 Tablet (of 1 mg) Oral daily, Atorvastatin Calcium 1 Tablet (of 10 mg) Oral daily, BuPROPion HCl ER (XL) 1 Tablet (of 300 mg) Tablet SR 24 HR Oral daily, Cranberry Plus Vitamin C 1 Capsule (of 4200-20-3 mg - mg - Units) Oral daily, Gabapentin (300 mg) Tablet Oral t.i.d., Glucosamine Tablet Oral, LORazepam 1 Tablet (of 1 mg) Oral PRN, Milk Thistle 1 Capsule (of 175 mg) Oral b.i.d., Ocuvite Adult Formula 1 Capsule Oral daily, TraZODone HCl 1 - 3 Tablet (of 100 mg) Oral at bedtime Allergies: PCN Review of Systems: Review of Systems is not available for this patient. Vital Signs: Performed on Jan 02, 2020 08:29 Height - 71.00 in Weight - 171.2 lbs (LOW) BSA - 1.97 sq.m BMI - 23.88 Temperature - 97.6 F (LOW) Pulse - 76 /min Respiration - 18 /min BP - 138/87 mm(hg) O2 Sat - 95 % (LOW) Pain - 0 Performance Status: 0 - Fully active, able to carry on all predisease activities without restrictions. (ECOG) Physical Examination: Respiratory - Lungs are clear, Cardiovascular - Regular rate and rhythm of heart, Gastrointestinal - Soft, bowel sounds present, Extremities - No visible edema or rash. Lab/Imaging: Test performed on Sep 02, 2019 08:15 Sodium 136 mmol/L Potassium 4.6 mmol/L Chloride 99 mmol/L CO2 24 mmol/L Anion Gap 17.6 BUN 16 mg/dL Creatinine 0.8 mg/dL Cr Clearance (Est) 93.6100 mL/min eGFR 72.2 mL/min Glucose 118 mg/dL Calcium 9.6 mg/dL Protein, Total 7.2 g/dL Albumin 4.4 g/dL Globulin 2.8 g/dL Bilirubin, Total 0.2 mg/dL ALT (SGPT) 26 U/L AST (SGOT) 29 U/L Alkaline Phosphatase 87 IU/L WBC 6.7 10 3/uL RBC 3.99 10 6/uL HGB 13.0 g/dL HCT 39.8 % MCV 99.7 fL MCH 32.6 pg MCHC 32.7 g/dL RDW 13.1 % Platelet Count 179 10 3/cmm MPV 9.8 fL Neutrophils 4.3 10 3/uL Lymphocytes 1.5 10 3/uL Monocytes 0.7 10 3/uL Eosinophils 0.2 10 3/uL Basophils 0.0 10 3/uL Neutrophil % 63.3 % Lymphocyte % 22.8 % Monocyte % 10.4 % Eosinophil % 2.5 % Basophils % 0.6 % Impression: Infiltrating ductal carcinoma off left breast status post lumpectomy with sentinel lymph node biopsy done on 01/10/2018, final pathology report showed size of tumor 1.7 x 1.6 cm, T1c, 0 out of 2 sentinel lymph nodes showed metastatic disease N0 Ki-67 31%, ER negative, MI negative, HER-2/laura 3+ As per mammogram done on 10/17/2017 showed left breast nodule measured 13 mm and ultrasound confirmed mass being 1 x 1.1 cm in size. s/p Cytoxan/Adriamycin x4 followed by Taxol/Herceptin x 12 weeks completed on 08/15/18 She began her first cycle of Cytoxan/Adriamycin on 02/28/2018 requested MRI of the brain due to persistent headaches, off balance/wobbly gait , and blurry vision. CANCER TREATMENT HISTORY: 1. Dose dense Adriamycin Cytoxan for 4 cycles beginning on 02/28/18. 2. 12 weeks of paclitaxel/Herceptin beginning 05/23/2018. completed 12 weeks of paclitaxel/Herceptin on 08/15/2018 3 Started on 3 weekly Herceptin for 9 months on 09/06/2018 And completed year-long Herceptin therapy on 05/29/2019 Follow-up echocardiogram done on 05/05/2019 showed normal left ventricle size and ejection fraction, 55-602% compared to previous study on 09/2018, no significant change. Plan: Discussed with patient regarding her labs white blood count 6.5 hemoglobin 13.2 hematocrit 46.6 platelets 195,000 CMP within normal limits Clinically, patient doing well with no signs symptom suggestive of recurrence of disease, her lab work-up is within normal range, and her follow-up mammogram shows no abnormality will continue to monitor and she will return to clinic in 6 months with CBC CMP Signed By: Aurora Lundberg M.D. <<Signature on File>>
== END 2020-01-02 05:45 | disposition home or self-care (01) ==
PROVIDERS: PCP Nurse Practitioner Family; Visit Provider Internal Medicine Hematology & Oncology
DX: Z08 Encounter for follow-up examination after completed treatment for malignant neoplasm (principal); Z85.3 Personal history of malignant neoplasm of breast; Z92.21 Personal history of antineoplastic chemotherapy; Z92.22 Personal history of monoclonal drug therapy
CPT/HCPCS: G0463

== ENCOUNTER 2020-01-30 05:54 | Outpatient (CLI) | payer MEDICARE, SELFPAY | END 2020-01-30 05:55 | disposition home or self-care (01) | PROVIDERS: PCP Nurse Practitioner Family; Visit Provider Internal Medicine Hematology & Oncology | DX: Z45.2 Encounter for adjustment and management of vascular access device (principal) | CPT/HCPCS: 96523 ==

== ENCOUNTER 2020-02-27 06:25 | Outpatient (CLI) | payer MEDICARE, SELFPAY | END 2020-02-27 06:26 | disposition home or self-care (01) | LOC: ONCMED 06:27 | PROVIDERS: PCP Nurse Practitioner Family; Visit Provider Internal Medicine Hematology & Oncology | DX: Z45.2 Encounter for adjustment and management of vascular access device (principal) | CPT/HCPCS: 96523 ==

== ENCOUNTER 2020-03-26 07:55 | Outpatient (CLI) | payer MEDICARE, SELFPAY | END 2020-03-26 07:56 | disposition home or self-care (01) | LOC: ONCMED 07:58 | PROVIDERS: PCP Nurse Practitioner Family; Visit Provider Internal Medicine Hematology & Oncology | DX: Z45.2 Encounter for adjustment and management of vascular access device (principal) | CPT/HCPCS: 96523 ==

== ENCOUNTER 2020-04-23 07:58 | Outpatient (CLI) | payer MEDICARE, SELFPAY | END 2020-04-23 07:59 | disposition home or self-care (01) | LOC: ONCMED 08:01 | PROVIDERS: PCP Nurse Practitioner Family; Visit Provider Internal Medicine Hematology & Oncology | DX: Z45.2 Encounter for adjustment and management of vascular access device (principal) | CPT/HCPCS: 96523 ==

== ENCOUNTER 2020-05-28 08:00 | Outpatient (CLI) | payer MEDICARE, SELFPAY | END 2020-05-28 08:01 | disposition home or self-care (01) | LOC: ONCMED 08:03 | PROVIDERS: PCP Nurse Practitioner Family; Visit Provider Internal Medicine Hematology & Oncology | DX: Z45.2 Encounter for adjustment and management of vascular access device (principal) | CPT/HCPCS: 96523 ==

== ENCOUNTER 2020-07-01 05:59 | Outpatient (CLI) | payer MEDICARE, SELFPAY ==
[2020-07-01 08:50] LABS: Basophils % 0.2 %; Eosinophils # 0.1 10^3/uL (0.0-0.8); Eosinophils % 1.8 %; Hematocrit 39.1 % (37.0-47.0); Hemoglobin 13.1 g/dL (11.5-15.3); Lymphocytes # 1.1 10^3/uL (0.8-4.8); Lymphocytes % 19.9 %; Mean Corpuscular HGB Conc 33.5 g/dL (30.0-36.0); Mean Corpuscular Hemoglobin 33.7 pg (28.0-34.0); Mean Corpuscular Volume 100.5 fL (81-99); Mean Platelet Volume 10.2 fL (7.4-10.4); Monocytes # 0.4 10^3/uL (0.2-0.9); Monocytes % 7.4 %; Neutrophils # 3.96 10^3/uL (1.8-7.7); Neutrophils % 70.2 %; Nucleated Red Blood Cells % 0 %; Platelet Count 179 10^3/cmm (130-400); Red Blood Count 3.89 10^6/uL (4.1-5.3); Red Cell Distribution Width 12.2 % (12.1-15.1); White Blood Count 5.6 10^3/uL (4.0-10.0)
[2020-07-01 09:15] LABS: Alanine Aminotransferase 22 U/L (0-33); Albumin Level 4.2 g/dL (3.5-5.2); Alkaline Phosphatase 88 IU/L (35-105); Anion Gap 10.4 (5-19); Aspartate Amino Transferase 23 U/L (0-32); Blood Urea Nitrogen 10 mg/dL (8-23); Calcium 9.3 mg/dL (8.5-10.5); Carbon Dioxide 27 mmol/L (22-29); Chloride 100 mmol/L (98-107); Globulin 2.4 g/dL (1.3-4.6); Glucose 103 mg/dL (65-115); Osmolality Calculated 275 mOsm/kg (285-295); Potassium 4.4 mmol/L (3.5-5.1); Sodium 133 mmol/L (136-145); Total Bilirubin 0.3 mg/dL (0.15-1.2); Total Protein 6.6 g/dL (6.6-8.7)
== END 2020-07-01 06:00 | disposition home or self-care (01) ==
LOC: ONCMED 06:01
PROVIDERS: PCP Nurse Practitioner Family; Visit Provider Internal Medicine Hematology & Oncology
DX: C50.412 Malignant neoplasm of upper-outer quadrant of left female breast (principal); Z17.0 Estrogen receptor positive status [ER+]; D70.1 Agranulocytosis secondary to cancer chemotherapy; K59.03 Drug induced constipation; T45.1X5A Adverse effect of antineoplastic and immunosuppressive drugs, initial encounter
CPT/HCPCS: 80053; 85025; 96523

== ENCOUNTER 2020-07-02 05:53 | Outpatient (CLI) | payer MEDICARE, SELFPAY ==
--- NOTE | 2020-07-02 09:39 | ONC FU_ITS ---
Dr. Lundberg follow up note Patient: Annalee Bal Unit #: [id number]: 1955 Dicatated By: Aurora Lundberg M.D.Date of Visit:Jul 02, 2020 Onc Med Follow-up/Prog Note History of Present Illness: Mrs. Bal is a 64-year-old female who was recently diagnosed with left breast cancer. She recently underwent routine follow-up mammogram on 10/17/2017 which showed a small area in the left breast that was reported as suspicious. On 12/18/2017 she underwent stereotactic/image guided biopsy, which showed infiltrating ductal carcinoma ER/[place] negative HER-2/laura positive. Mrs Bal then underwent lumpectomy with sentinel lymph node biopsy per Dr Tello on 01/10/2018. The pathology showed 1.7 x 1.6 cm tumor, with negative sentinel lymph nodes. Menarche at age 13 and first at age 15 and she has never used hormonal supplement and no family history of breast cancer. Mild peripheral neuropathy involving lower extremities especially feet more on the right side, history of disc bulge required no treatment in the past. recommended post lumpectomy/sentinel lymph node biopsy , adjuvant chemotherapy.. She has completed 4 cycles of Adriamycin Cytoxan and weekly Taxol/Herceptin ???12 starting 05/23/18 till 08/15/18 3 weekly Herceptin for 9 months was started on 09/06/2018 And completed on 05/29/2019 s/p postlumpectomy radiation therapy Completed on 10/29/2018 She reported that she fallen in the past as she was trying to step up on a sidewalk and my legs just gave out and fell on my knees.Was evaluated by orthopedics and on 08/19/2018, had right shoulder radiological studies which showed mild right AC joint arthropathy, no acute fracture. She began the Herceptin on 05/23/18. She has completed her radiation therapy and is now on single agent Herceptin. Echo done on 02/06/2019 showed ejection fraction 55% when compared with one from 09/12/2018 showed no change She has been having some lower extremity weakness for sometime now and is seeing neurology In [place] and as per patient she was told about bulging disc causing nerve compression in lower back and now nerve conduction studies of lower extremities is under consideration s/p physical therapy without much help as far as mild to mod numbness in feet is concern She did have follow-up echocardiogram on 05/05/2019 which reported an ejection fraction of 55 to 60%. She also had a DEXA scan on 05/02/2019 which she reports a bone mineral density of L1 L4 of T score -2.2 and left femoral neck bone mineral density measured T score of -1.2. Mean femoral neck bone density T score was 1.0 and right femoral neck bone mineral density was T score -0.9. The FRAX calculated 10-year probability for major osteoporotic fracture is 17.5% and osteoporotic hip fracture is 3.8%. Since 2015 bone mineral density lumbar spine has decreased by -4.1% and -1.2% in the femoral necks . Follow-up mammogram done on December 25, 2019 came back BI-RADS 2 e.g. benign Came for follow-up, denies any specific complaint except persistent lower extremity neuropathy but stable, also complaining of poor taste otherwise no new bony pains, no weight loss, no fever chills, no nausea or vomiting no diarrhea or constipation, no abdominal pain. No headaches. Medications: Activite EC 1 Tablet (of 1 mg) Oral daily, Atorvastatin Calcium 1 Tablet (of 10 mg) Oral daily, BuPROPion HCl ER (XL) 1 Tablet (of 300 mg) Tablet SR 24 HR Oral daily, Cranberry Plus Vitamin C 1 Capsule (of 4200-20-3 mg - mg - Units) Oral daily, Gabapentin (300 mg) Tablet Oral t.i.d., Glucosamine Tablet Oral, LORazepam 1 Tablet (of 1 mg) Oral PRN, Milk Thistle 1 Capsule (of 175 mg) Oral b.i.d., Ocuvite Adult Formula 1 Capsule Oral daily, TraZODone HCl 1 - 3 Tablet (of 100 mg) Oral at bedtime Allergies: PCN Review of Systems: Review of Systems is not available for this patient. Vital Signs: Performed on Jul 02, 2020 08:14 Height - 71.00 in Weight - 173.2 lbs (HIGH) BSA - 1.98 sq.m BMI - 24.16 Temperature - 98.6 F Pulse - 85 /min Respiration - 18 /min BP - 132/69 mm(hg) O2 Sat - 96 % Pain - 7 Fatigue - 3 Performance Status: 0 - Fully active, able to carry on all predisease activities without restrictions. (ECOG) Physical Examination: Respiratory - Lungs are clear to auscultation, Cardiovascular - Regular rate and rhythm of heart, Gastrointestinal - soft , Bowel sounds present, Extremities - No visible edema or rash. Lab/Imaging: Most recent lab results are not available for this patient. Impression: Infiltrating ductal carcinoma off left breast status post lumpectomy with sentinel lymph node biopsy done on 01/10/2018, final pathology report showed size of tumor 1.7 x 1.6 cm, T1c, 0 out of 2 sentinel lymph nodes showed metastatic disease N0 Ki-67 31%, ER negative, [place] negative, HER-2/laura 3+ As per mammogram done on 10/17/2017 showed left breast nodule measured 13 mm and ultrasound confirmed mass being 1 x 1.1 cm in size. s/p Cytoxan/Adriamycin x4 followed by Taxol/Herceptin x 12 weeks completed on 08/15/18 She began her first cycle of Cytoxan/Adriamycin on 02/28/2018 requested MRI of the brain due to persistent headaches, off balance/wobbly gait , and blurry vision. CANCER TREATMENT HISTORY: 1. Dose dense Adriamycin Cytoxan for 4 cycles beginning on 02/28/18. 2. 12 weeks of paclitaxel/Herceptin beginning 05/23/2018. completed 12 weeks of paclitaxel/Herceptin on 08/15/2018 3 Started on 3 weekly Herceptin for 9 months on 09/06/2018 And completed year-long Herceptin therapy on 05/29/2019 Follow-up echocardiogram done on 05/05/2019 showed normal left ventricle size and ejection fraction, 55-602% compared to previous study on 09/2018, no significant change. Plan: Discussed with patient regarding her labs white blood count 5.6 hemoglobin 13.1 hematocrit 39.1 platelets 179,000 CMP within normal limits Clinically, patient is doing well with no new signs symptom suggestive of recurrence of disease her lab work-up is within normal range. As far as poor taste is concerned patient was advised to maintain good oral hygiene. At this point we will consider Port-A-Cath removal at patient's request. And she will return to clinic in 6 months with CBC CMP and follow-up mammogram Signed By: Aurora Lundberg M.D. <<Signature on File>>
== END 2020-07-02 05:54 | disposition home or self-care (01) ==
LOC: ONCMED 05:55
PROVIDERS: PCP Nurse Practitioner Family; Visit Provider Internal Medicine Hematology & Oncology
DX: Z08 Encounter for follow-up examination after completed treatment for malignant neoplasm (principal); Z85.3 Personal history of malignant neoplasm of breast; Z95.828 Presence of other vascular implants and grafts
CPT/HCPCS: 99214

== ENCOUNTER 2020-10-05 08:09 | Outpatient (CLI) | payer MEDICARE, SELFPAY ==
--- NOTE | 2020-10-05 08:19 | CT_ITS ---
WS: [id number] LDCT LUNG CANCER SCREENING TECHNIQUE: Noncontrast CT of the chest with coronal and sagittal reformatted images. CLINICAL INFORMATION: HX OF TOBACCO USE COMPARISON: None. DLP: 56.56 mGy.cm DIvol: 1.[address] scans at [facility] use at least one of these dose optimization techniques: automat ed exposure control; mA and/or kV adjustment per patient size (includes targeted exams where dose is matched to clinical indication); or iterative reconstruction. FINDINGS: Lungs are well aerated. No acute pulmonary infiltrates. Mild chronic emphysematous changes.Calcified granulomas right lower lobe. Noncalcified nodule left upper lobe measuring 2 mm. Adrenal glands are normal. Normal GE junction. No mediastinal or hilar lymphadenopathy. No axillary l ymphadenopathy. CT/CT lung screening [id number] IMPRESSION: LUNG-RADS: 2-Benign Appearance or Behavior FOLLOW UP: 12 Month: Continue annual screening with LDCT
--- NOTE | 2020-10-05 08:38 | CT_ITS ---
WS: [id number] CT CERVICAL SPINE TECHNIQUE: Noncontrast CT of the cervical spine with coronal and sagittal reformatted images. CLINICAL INFORMATION: LOSS OF CONSCIOUSNESS COMPARISON: None. DLP: [address] scans at [facility] use at least one of these dose optimization techniques: automat ed exposure control; mA and/or kV adjustment per patient size (includes targeted exams where dose is matched to clinical indication); or iterative reconstruction. FINDINGS: Straightening of the normal cervical lordosis. Mild spondylitic changes. Mild disc bulging C5-C6 and C6-C7. Slight anterolisthesis C2 on C3. C2-C3: Normal. C3-C4: Slight anterolisthesis. Mild disc osteophyte complex with tiny central protrusion. Slight cont act of the cervical cord. Spinal canal is patent. Mild facet arthropathy. Foramen are patent. C4-C5: Mild disc osteophyte complex with tiny central protrusion. Mild central canal stenosis. Mild b ilateral foraminal narrowing. Mild facet arthropathy. C5-C6: Disc osteophyte complex with endplate ridging. Mild to moderate central canal stenosis with sl ight contact of the cervical cord. Moderate to severe right and mild to moderate left bony foraminal narrowing. Mild facet arthropathy. C6-C7: Disc osteophyte complex with endplate ridging. Mild to moderate central canal stenosis. Severe right and mild left bony foraminal narrowing. Mild facet arthropathy. C7-T1: No significant disc bulging. Spinal canal and foramen are patent. Visualized posterior nasopharynx: Normal. Prevertebral soft tissues: Normal. CT/CT cervical spin wo con* [id number] IMPRESSION: 1. Mild spondylitic changes with straightening of the normal cervical lordosis . 2. Mild central canal stenosis C4-5. Mild to moderate central canal stenosis C 5-C6 and C6-C7. 3. Moderate to severe bony foraminal narrowing right C5-C6 and right C6-7.
--- NOTE | 2020-10-05 08:38 | CT_ITS ---
WS: [id number] CT HEAD TECHNIQUE: Noncontrast and contrast-enhanced CT of the head. CLINICAL INFORMATION: LOSS OF CONSCIOUSNESS COMPARISON: None. DLP: 1161.[address] scans at [facility] use at least one of these dose optimization techniques: automat ed exposure control; mA and/or kV adjustment per patient size (includes targeted exams where dose is matched to clinical indication); or iterative reconstruction. FINDINGS: No evidence of intracranial hemorrhage or mass effect. Ventricular system and basal cisterns are xiao nt. Mild small vessel changes with mild parenchymal volume loss. No abnormal intracranial enhancement . No extra axial fluid collections. Mastoid air cells and paranasal sinuses are well aerated. Normal soft tissues. CT/CT head wo/w con [id number] IMPRESSION: 1. No evidence of intracranial hemorrhage or mass effect. 2. Mild small vessel changes with mild parenchymal volume loss. 3. No abnormal intracranial enhancement. 4. No acute intracranial findings.
[2020-10-05 09:21] LABS: Blood Urea Nitrogen 15 mg/dL (8-23); Glomerular Filtration Rate 71.8 mL/min (90-130)
[2020-10-05] MEDS: iohexol 300 mg/mL 100 mL Btl IV (09:36)
== END 2020-10-05 08:10 | disposition home or self-care (01) ==
LOC: CT 08:13
PROVIDERS: PCP Nurse Practitioner Family; Visit Provider Nurse Practitioner Family
DX: Z12.2 Encounter for screening for malignant neoplasm of respiratory organs (principal); R40.20 Unspecified coma
CPT/HCPCS: 36415; 70470; 71271; 72125; 82565; 84520

== ENCOUNTER 2020-12-29 09:19 | Outpatient (CLI) | payer MEDICARE, SELFPAY ==
--- NOTE | 2020-12-29 09:28 | MM_ITS ---
WS: [id number] DIAGNOSTIC BILATERAL DIGITAL MAMMOGRAM WITH CAD HISTORY: HX OF BREAST CA COMPARISON: 12/25/2019 and 12/20/2018 TECHNIQUE: Bilateral craniocaudad, mediolateral oblique, and mediolateral views are submitted. Comput er aided detection utilized. Breast composition: There are scattered areas of fibroglandular density. Postsurgical changes in the upper-outer quadrant of the LEFT breast with dystrophic calcifications. No change or new mass identif ied. Benign calcifications in the RIGHT breast. MM/[place] [id number] IMPRESSION: BI-RADS: 2-Benign FOLLOW UP: 1 Year Follow-up
== END 2020-12-29 09:20 | disposition home or self-care (01) ==
LOC: RADSHAW 09:25
PROVIDERS: PCP Nurse Practitioner Family; Visit Provider Internal Medicine Hematology & Oncology
DX: Z85.3 Personal history of malignant neoplasm of breast (principal)
CPT/HCPCS: 77066

== ENCOUNTER 2020-12-31 05:51 | Outpatient (CLI) | payer MEDICARE, SELFPAY ==
[2020-12-31 10:00] LABS: Basophils % 0.4 %; Eosinophils # 0.1 10^3/uL (0.0-0.8); Hematocrit 41.7 % (37.0-47.0); Hemoglobin 14.3 g/dL (11.5-15.3); Lymphocytes % 19.8 %; Mean Corpuscular HGB Conc 34.3 g/dL (30.0-36.0); Mean Corpuscular Hemoglobin 34.3 pg (28.0-34.0); Mean Platelet Volume 9.9 fL (7.4-10.4); Monocytes # 0.6 10^3/uL (0.2-0.9); Monocytes % 12.5 %; Neutrophils # 3.28 10^3/uL (1.8-7.7); Neutrophils % 64.9 %; Nucleated Red Blood Cells % 0 %; Platelet Count 176 10^3/cmm (130-400); Red Blood Count 4.17 10^6/uL (4.1-5.3); Red Cell Distribution Width 12.7 % (12.1-15.1); White Blood Count 5.1 10^3/uL (4.0-10.0)
[2020-12-31 10:26] LABS: Alanine Aminotransferase 21 U/L (0-33); Albumin Level 4.1 g/dL (3.5-5.2); Alkaline Phosphatase 87 IU/L (35-105); Anion Gap 12.3 (5-19); Aspartate Amino Transferase 27 U/L (0-32); Blood Urea Nitrogen 10 mg/dL (8-23); Calcium 8.5 mg/dL (8.5-10.5); Carbon Dioxide 25 mmol/L (22-29); Chloride 102 mmol/L (98-107); Globulin 2.4 g/dL (1.3-4.6); Glomerular Filtration Rate 83.7 mL/min (90-130); Glucose 97 mg/dL (65-115); Osmolality Calculated 279 mOsm/kg (285-295); Potassium 4.3 mmol/L (3.5-5.1); Sodium 135 mmol/L (136-145); Total Bilirubin 0.2 mg/dL (0.15-1.2); Total Protein 6.5 g/dL (6.6-8.7)
--- NOTE | 2020-12-31 12:21 | ONC FU_ITS ---
Dr. Lundberg follow up note Patient: Annalee Bal Unit #: [id number]: 1955 Dicatated By: Aurora Lundberg M.D.Date of Visit:Dec 31, 2020 Onc Med Follow-up/Prog Note History of Present Illness: Mrs. Bal is a 64-year-old female who was recently diagnosed with left breast cancer. She recently underwent routine follow-up mammogram on 10/17/2017 which showed a small area in the left breast that was reported as suspicious. On 12/18/2017 she underwent stereotactic/image guided biopsy, which showed infiltrating ductal carcinoma ER/KS negative HER-2/laura positive. Mrs Bal then underwent lumpectomy with sentinel lymph node biopsy per Dr Tello on 01/10/2018. The pathology showed 1.7 x 1.6 cm tumor, with negative sentinel lymph nodes. Menarche at age 13 and first at age 15 and she has never used hormonal supplement and no family history of breast cancer. Mild peripheral neuropathy involving lower extremities especially feet more on the right side, history of disc bulge required no treatment in the past. recommended post lumpectomy/sentinel lymph node biopsy , adjuvant chemotherapy.. She has completed 4 cycles of Adriamycin Cytoxan and weekly Taxol/Herceptin ???12 starting 05/23/18 till 08/15/18 3 weekly Herceptin for 9 months was started on 09/06/2018 And completed on 05/29/2019 s/p postlumpectomy radiation therapy Completed on 10/29/2018 She reported that she fallen in the past as she was trying to step up on a sidewalk and my legs just gave out and fell on my knees.Was evaluated by orthopedics and on 08/19/2018, had right shoulder radiological studies which showed mild right AC joint arthropathy, no acute fracture. She began the Herceptin on 05/23/18. She has completed her radiation therapy and is now on single agent Herceptin. Echo done on 02/06/2019 showed ejection fraction 55% when compared with one from 09/12/2018 showed no change She has been having some lower extremity weakness for sometime now and is seeing neurology In [place] and as per patient she was told about bulging disc causing nerve compression in lower back and now nerve conduction studies of lower extremities is under consideration s/p physical therapy without much help as far as mild to mod numbness in feet is concern She did have follow-up echocardiogram on 05/05/2019 which reported an ejection fraction of 55 to 60%. She also had a DEXA scan on 05/02/2019 which she reports a bone mineral density of L1 L4 of T score -2.2 and left femoral neck bone mineral density measured T score of -1.2. Mean femoral neck bone density T score was 1.0 and right femoral neck bone mineral density was T score -0.9. The FRAX calculated 10-year probability for major osteoporotic fracture is 17.5% and osteoporotic hip fracture is 3.8%. Since 2015 bone mineral density lumbar spine has decreased by -4.1% and -1.2% in the femoral necks . Follow-up mammogram done on December 25, 2019 came back BI-RADS 2 e.g. benign Came for follow-up, denies any specific complaint except episode of passing out in September 2020, as per patient she went to see her PMD next day and CT scan of head and neck was done which showed no abnormality she also underwent follow-up CT scan of lung as patient has longstanding history of smoking and it showed no abnormality there patient had mammogram done yesterday which was benign. Denies any fever chills denies any nausea or vomiting or any diarrhea constipation but patient consumes significant alcohol on daily basis including 2-3 beer and rum and coke, as per patient she has cut down her alcohol consumption significantly Medications: Activite EC 1 Tablet (of 1 mg) Oral daily, Atorvastatin Calcium 1 Tablet (of 10 mg) Oral daily, BuPROPion HCl ER (XL) 1 Tablet (of 300 mg) Tablet SR 24 HR Oral daily, Cranberry Plus Vitamin C 1 Capsule (of 4200-20-3 mg - mg - Units) Oral daily, Gabapentin (300 mg) Tablet Oral t.i.d., Glucosamine Tablet Oral, LORazepam 1 Tablet (of 1 mg) Oral PRN, Milk Thistle 1 Capsule (of 175 mg) Oral b.i.d., Ocuvite Adult Formula 1 Capsule Oral daily, TraZODone HCl 1 - 3 Tablet (of 100 mg) Oral at bedtime Allergies: PCN Review of Systems: Review of Systems is not available for this patient. Vital Signs: Performed on Dec 31, 2020 10:44 Height - 71.00 in Weight - 170 lbs (LOW) BSA - 1.97 sq.m BMI - 23.71 Temperature - 98.3 F (LOW) Pulse - 78 /min Respiration - 18 /min BP - 132/78 mm(hg) O2 Sat - 99 % Pain - 0 Fatigue - 5 Performance Status: 0 - Fully active, able to carry on all predisease activities without restrictions. (ECOG) Physical Examination: Respiratory - Lungs are clear to auscultation, Cardiovascular - Regular rate and rhythm of heart, Gastrointestinal - Soft, bowel sounds present, Extremities - No visible edema. Lab/Imaging: Most recent lab results are not available for this patient. Impression: Infiltrating ductal carcinoma off left breast status post lumpectomy with sentinel lymph node biopsy done on 01/10/2018, final pathology report showed size of tumor 1.7 x 1.6 cm, T1c, 0 out of 2 sentinel lymph nodes showed metastatic disease N0 Ki-67 31%, ER negative, KS negative, HER-2/laura 3+ As per mammogram done on 10/17/2017 showed left breast nodule measured 13 mm and ultrasound confirmed mass being 1 x 1.1 cm in size. s/p Cytoxan/Adriamycin x4 followed by Taxol/Herceptin x 12 weeks completed on 08/15/18 She began her first cycle of Cytoxan/Adriamycin on 02/28/2018 requested MRI of the brain due to persistent headaches, off balance/wobbly gait , and blurry vision. CANCER TREATMENT HISTORY: 1. Dose dense Adriamycin Cytoxan for 4 cycles beginning on 02/28/18. 2. 12 weeks of paclitaxel/Herceptin beginning 05/23/2018. completed 12 weeks of paclitaxel/Herceptin on 08/15/2018 3 Started on 3 weekly Herceptin for 9 months on 09/06/2018 And completed year-long Herceptin therapy on 05/29/2019 Follow-up echocardiogram done on 05/05/2019 showed normal left ventricle size and ejection fraction, 55-602% compared to previous study on 09/2018, no significant change. follow-up mammogram Done on December 29hows BI-RADS 2, benign Plan: Discussed with patient regarding her labs white blood count 5.1 hemoglobin 14.3 hematocrit 41.7 platelets 176,000 CMP within normal limits and follow-up mammogram Done on December 29hows BI-RADS 2, benign Clinically, patient doing well with no new signs symptoms history of recurrence of disease her lab work-up is within normal range. Patient had episode of near syncopal attack in the September 2020 as per patient she underwent CT scan of head and neck which was unremarkable she also underwent follow-up CT scan of chest for screening purposes as patient has longstanding history of smoking. And had mammogram done yesterday which was benign, and patient was advised to quit alcohol or minimize patient states she is working on that. She was offered any assistance she may need. Patient wants Port-A-Cath removal so we will request Dr. De La Garza for that and then patient return to clinic in 6 months with CBC CMP Signed By: Aurora Lundberg M.D. <<Signature on File>>
== END 2020-12-31 05:52 | disposition home or self-care (01) ==
PROVIDERS: PCP Nurse Practitioner Family; Visit Provider Internal Medicine Hematology & Oncology
DX: Z08 Encounter for follow-up examination after completed treatment for malignant neoplasm (principal); Z85.3 Personal history of malignant neoplasm of breast; Z17.1 Estrogen receptor negative status [ER-]; Z79.899 Other long term (current) drug therapy; Z92.21 Personal history of antineoplastic chemotherapy; Z92.3 Personal history of irradiation; Z90.11 Acquired absence of right breast and nipple
CPT/HCPCS: 36591; 80053; 85025; 99214

== ENCOUNTER 2021-06-20 08:37 | Outpatient (CLI) | payer MEDICARE, SELFPAY ==
--- NOTE | 2021-06-20 08:49 | FL_ITS ---
WS: [id number] MODIFIED BARIUM SWALLOW HISTORY: Other dysphagia FLUOROSCOPY TIME: 1.4 minutes. Modified barium swallow was performed by the speech pathologist. Fluoroscopy was provided with the pa tient in a lateral projection. Multiple food consistencies were provided. Patient swallowed all food consistencies without difficulty. Barium tablet was swallowed without diff iculty. No aspiration or laryngeal penetration. FL/FL barium swallow modifd [id number] IMPRESSION: Normal modified swallowing exam. Please see speech therapist report also for recommendations.
== END 2021-06-20 08:38 | disposition home or self-care (01) ==
LOC: RAD 08:41
PROVIDERS: PCP Nurse Practitioner Family; Visit Provider Nurse Practitioner Family
DX: R13.10 Dysphagia, unspecified (principal)
CPT/HCPCS: 74230; 92611

== ENCOUNTER 2021-07-04 12:14 | Outpatient (CLI) | payer MEDICARE, SELFPAY ==
[2021-07-04 12:50] LABS: Basophils % 0.4 %; Eosinophils % 0.5 %; Hematocrit 40.6 % (37.0-47.0); Hemoglobin 13.5 g/dL (11.5-15.3); Lymphocytes # 1.4 10^3/uL (0.8-4.8); Lymphocytes % 17.1 %; Mean Corpuscular HGB Conc 33.3 g/dL (30.0-36.0); Mean Corpuscular Hemoglobin 33.3 pg (28.0-34.0); Mean Corpuscular Volume 100.2 fl (81-99); Mean Platelet Volume 9.6 fL (7.4-10.4); Monocytes # 0.5 10^3/uL (0.2-0.9); Monocytes % 6.4 %; Neutrophils # 6.27 10^3/uL (1.8-7.7); Neutrophils % 75.2 %; Nucleated Red Blood Cells % 0 %; Platelet Count 213 10^3/cmm (130-400); Red Blood Count 4.05 10^6/uL (4.1-5.3); Red Cell Distribution Width 12.4 % (12.1-15.1); White Blood Count 8.3 10^3/uL (4.0-10.0)
[2021-07-04 13:14] LABS: Alanine Aminotransferase 34 U/L (0-33); Albumin Level 4.5 g/dL (3.5-5.2); Alkaline Phosphatase 112 IU/L (35-105); Aspartate Amino Transferase 31 U/L (0-32); Blood Urea Nitrogen 11 mg/dL (8-23); Calcium 9.6 mg/dL (8.5-10.5); Carbon Dioxide 25 mmol/L (22-29); Chloride 99 mmol/L (98-107); Globulin 2.7 g/dL (1.3-4.6); Glomerular Filtration Rate 83.7 mL/min (90-130); Glucose 104 mg/dL (65-115); Osmolality Calculated 284 mOsm/kg (285-295); Sodium 137 mmol/L (136-145); Total Bilirubin 0.4 mg/dL (0.15-1.2); Total Protein 7.2 g/dL (6.6-8.7)
--- NOTE | 2021-07-06 17:23 | ONC FU_ITS ---
Dr. Lundberg follow up note Patient: Annalee Bal Unit #: [id number]: 1955 Dicatated By: Aurora Lundberg M.D.Date of Visit:Jul 04, 2021 Onc Med Follow-up/Prog Note History of Present Illness: Mrs. Bal is a 65-year-old female who was recently diagnosed with left breast cancer. She recently underwent routine follow-up mammogram on 10/17/2017 which showed a small area in the left breast that was reported as suspicious. On 12/18/2017 she underwent stereotactic/image guided biopsy, which showed infiltrating ductal carcinoma ER/MA negative HER-2/laura positive. Mrs Bal then underwent lumpectomy with sentinel lymph node biopsy per Dr Tello on 01/10/2018. The pathology showed 1.7 x 1.6 cm tumor, with negative sentinel lymph nodes. Menarche at age 13 and first at age 15 and she has never used hormonal supplement and no family history of breast cancer. Mild peripheral neuropathy involving lower extremities especially feet more on the right side, history of disc bulge required no treatment in the past. recommended post lumpectomy/sentinel lymph node biopsy , adjuvant chemotherapy.. She has completed 4 cycles of Adriamycin Cytoxan and weekly Taxol/Herceptin ???12 starting 05/23/18 till 08/15/18 3 weekly Herceptin for 9 months was started on 09/06/2018 And completed on 05/29/2019 s/p postlumpectomy radiation therapy Completed on 10/29/2018 She reported that she fallen in the past as she was trying to step up on a sidewalk and my legs just gave out and fell on my knees.Was evaluated by orthopedics and on 08/19/2018, had right shoulder radiological studies which showed mild right AC joint arthropathy, no acute fracture. She began the Herceptin on 05/23/18. She has completed her radiation therapy and is now on single agent Herceptin. Echo done on 02/06/2019 showed ejection fraction 55% when compared with one from 09/12/2018 showed no change She has been having some lower extremity weakness for sometime now and is seeing neurology [place] and as per patient she was told about bulging disc causing nerve compression in lower back and now nerve conduction studies of lower extremities is under consideration s/p physical therapy without much help as far as mild to mod numbness in feet is concern She did have follow-up echocardiogram on 05/05/2019 which reported an ejection fraction of 55 to 60%. She also had a DEXA scan on 05/02/2019 which she reports a bone mineral density of L1 L4 of T score -2.2 and left femoral neck bone mineral density measured T score of -1.2. Mean femoral neck bone density T score was 1.0 and right femoral neck bone mineral density was T score -0.9. The FRAX calculated 10-year probability for major osteoporotic fracture is 17.5% and osteoporotic hip fracture is 3.8%. Since 2015 bone mineral density lumbar spine has decreased by -4.1% and -1.2% in the femoral necks . Follow-up mammogram done on December 25, 2019 came back BI-RADS 2 e.g. benign episode of choking sensation for which she was evaluated by PMD and on June 20, 2021 underwent modified barium swallow which shows normal modified swallowing exam Came for follow-up, denies any specific complaint except episode of choking sensation for which she was evaluated by PMD and on June 20, 2021 underwent modified barium swallow which shows normal modified swallowing exam., Since then no more episode of choking sensation or aspiration, no dysphagia, no hemoptysis hematemesis, no headaches blurred vision or double vision, no new bony pains, appetite is good, as per patient she has cut down her alcohol intake significantly. As per patient since her last visit, her Port-A-Cath was taken out by Dr. Tello Medications: Activite EC 1 Tablet (of 1 mg) Oral daily, Atorvastatin Calcium 1 Tablet (of 10 mg) Oral daily, BuPROPion HCl ER (XL) 1 Tablet (of 300 mg) Tablet SR 24 HR Oral daily, Cranberry Plus Vitamin C 1 Capsule (of 4200-20-3 mg - mg - Units) Oral daily, Gabapentin (300 mg) Tablet Oral t.i.d., Glucosamine Tablet Oral, LORazepam 1 Tablet (of 1 mg) Oral PRN, Milk Thistle 1 Capsule (of 175 mg) Oral b.i.d., Ocuvite Adult Formula 1 Capsule Oral daily, TraZODone HCl 1 - 3 Tablet (of 100 mg) Oral at bedtime Allergies: PCN Review of Systems: Review of Systems is not available for this patient. Vital Signs: Performed on Jul 04, 2021 16:11 Height - 71.00 in Weight - 177.6 lbs (HIGH) BSA - 2.01 sq.m BMI - 24.77 Temperature - 97.1 F (LOW) Pulse - 106 /min (HIGH) Respiration - 18 /min BP - 152/76 mm(hg) (HIGH) O2 Sat - 97 % Pain - 0 Fatigue - 4 Performance Status: 0 - Fully active, able to carry on all predisease activities without restrictions. (ECOG) Physical Examination: Respiratory - Lungs are clear to auscultation, Cardiovascular - Regular rate and rhythm of heart, Gastrointestinal - Soft, bowel sounds present, Extremities - No visible edema. Lab/Imaging: Most recent lab results are not available for this patient. Impression: Infiltrating ductal carcinoma off left breast status post lumpectomy with sentinel lymph node biopsy done on 01/10/2018, final pathology report showed size of tumor 1.7 x 1.6 cm, T1c, 0 out of 2 sentinel lymph nodes showed metastatic disease N0 Ki-67 31%, ER negative, MA negative, HER-2/laura 3+ As per mammogram done on 10/17/2017 showed left breast nodule measured 13 mm and ultrasound confirmed mass being 1 x 1.1 cm in size. s/p Cytoxan/Adriamycin x4 followed by Taxol/Herceptin x 12 weeks completed on 08/15/18 She began her first cycle of Cytoxan/Adriamycin on 02/28/2018 requested MRI of the brain due to persistent headaches, off balance/wobbly gait , and blurry vision. CANCER TREATMENT HISTORY: 1. Dose dense Adriamycin Cytoxan for 4 cycles beginning on 02/28/18. 2. 12 weeks of paclitaxel/Herceptin beginning 05/23/2018. completed 12 weeks of paclitaxel/Herceptin on 08/15/2018 3 Started on 3 weekly Herceptin for 9 months on 09/06/2018 And completed year-long Herceptin therapy on 05/29/2019 Follow-up echocardiogram done on 05/05/2019 showed normal left ventricle size and ejection fraction, 55-602% compared to previous study on 09/2018, no significant change. Plan: Discussed with patient regarding her labs white blood count 8.3 hemoglobin 13.5 hematocrit 40.6 platelets 213,000 CMP within normal limit except ALT 34 compared to 21 previously alk phos 112 compared to 87 previously Clinically, patient doing well with no new signs symptoms history of disease progression, her CMP shows mildly elevated ALT, could be due to excessive alcohol intake, patient was advised to discontinue her minimum alcohol intake and also try [id number] multivitamin or thiamine supplement, will continue to monitor she will return to clinic in 6 months with CBC CMP and follow-up mammogram Signed By: Aurora Lundberg M.D. <<Signature on File>>
== END 2021-07-04 12:15 | disposition home or self-care (01) ==
LOC: ONCMED 12:18
PROVIDERS: PCP Nurse Practitioner Family; Visit Provider Internal Medicine Hematology & Oncology
DX: Z85.3 Personal history of malignant neoplasm of breast (principal); Z92.3 Personal history of irradiation
CPT/HCPCS: 36415; 80053; 85025; 99214

== ENCOUNTER → 2021-07-28 10:03 | Outpatient (BNVA) | payer MEDICARE, SELFPAY | PROVIDERS: PCP Nurse Practitioner Family; Referring Provider Nurse Practitioner; Visit Provider Physician Assistant | DX: S82.431A Displaced oblique fracture of shaft of right fibula, initial encounter for closed fracture (principal); X58.XXXA Exposure to other specified factors, initial encounter | CPT/HCPCS: 73610 ==

== ENCOUNTER → 2021-08-11 10:14 | Outpatient (BNVA) | payer MEDICARE, SELFPAY | PROVIDERS: PCP Nurse Practitioner Family; Visit Provider Physician Assistant | DX: S82.831D Other fracture of upper and lower end of right fibula, subsequent encounter for closed fracture with routine healing (principal); W01.190D Fall on same level from slipping, tripping and stumbling with subsequent striking against furniture, subsequent encounter | CPT/HCPCS: 73610; 99213; 99999 ==

== ENCOUNTER → 2021-09-08 09:09 | Outpatient (BNVA) | payer MEDICARE, SELFPAY | PROVIDERS: PCP Nurse Practitioner Family; Visit Provider Physician Assistant | DX: S82.831D Other fracture of upper and lower end of right fibula, subsequent encounter for closed fracture with routine healing (principal); X58.XXXD Exposure to other specified factors, subsequent encounter | CPT/HCPCS: 73610; 99213; 99999 ==

== ENCOUNTER 2021-12-30 14:43 | Outpatient (CLI) | payer MEDICARE, SELFPAY ==
--- NOTE | 2021-12-30 14:51 | MM_ITS ---
WS: [id number] BILATERAL 3D TOMOSYNTHESIS DIGITAL DIAGNOSTIC MAMMOGRAPHY WITH CAD CLINICAL INFORMATION: HX OF BREAST CA COMPARISON: December 29, 2020 TECHNIQUE: Bilateral CC, MLO, and ML views. FINDINGS: The breasts are composed of heterogeneous fibroglandular density, which can limit the detection of sm all underlying mass lesions. Lumpectomy upper-outer quadrant LEFT breast with fat necrosis and dystro phic calcification. Associated parenchymal fibrosis. Punctate and lucent centered calcifications RIGH T breast. No suspicious focal mass, asymmetry, calcifications, or architectural distortion. No evidence of francesca gnancy. MM/[place] [id number] IMPRESSION: BI-RADS: 2-Benign FOLLOW UP: 1 Year Follow-up Recommend return to annual diagnostic mammography.
== END 2021-12-30 14:44 | disposition home or self-care (01) ==
LOC: RAD 14:43
PROVIDERS: PCP Family Medicine; Visit Provider Internal Medicine Hematology & Oncology
DX: Z85.3 Personal history of malignant neoplasm of breast (principal)
CPT/HCPCS: 77062

== ENCOUNTER → 2022-01-11 08:35 | Outpatient (BNVA) | payer MEDICARE, SELFPAY | PROVIDERS: PCP Family Medicine; Visit Provider Family Medicine | DX: E78.5 Hyperlipidemia, unspecified (principal); I10 Essential (primary) hypertension; F10.10 Alcohol abuse, uncomplicated; M85.80 Other specified disorders of bone density and structure, unspecified site; G62.9 Polyneuropathy, unspecified; Z78.0 Asymptomatic menopausal state | CPT/HCPCS: 80053; 80061; 82306; 82607; 82746; 84425; 85025 ==

== ENCOUNTER 2022-01-30 08:06 | Oncology outpatient (recurring) (ONCR) | payer MEDICARE, SELFPAY ==
[2022-01-30 08:33] LABS: Basophils % 0.5 %; Eosinophils # 0.1 10^3/uL (0.0-0.8); Hematocrit 40.1 % (37.0-47.0); Hemoglobin 13.4 g/dL (11.5-15.3); Lymphocytes # 1.3 10^3/uL (0.8-4.8); Lymphocytes % 14.3 %; Mean Corpuscular HGB Conc 33.4 g/dL (30.0-36.0); Mean Corpuscular Hemoglobin 33.8 pg (28.0-34.0); Mean Corpuscular Volume 101.3 fl (81-99); Mean Platelet Volume 9.8 fL (7.4-10.4); Monocytes # 0.7 10^3/uL (0.2-0.9); Monocytes % 7.8 %; Neutrophils # 6.73 10^3/uL (1.8-7.7); Neutrophils % 75.8 %; Nucleated Red Blood Cells % 0 %; Platelet Count 217 10^3/cmm (130-400); Red Blood Count 3.96 10^6/uL (4.1-5.3); Red Cell Distribution Width 12.4 % (12.1-15.1); White Blood Count 8.9 10^3/uL (4.0-10.0)
[2022-01-30 08:51] LABS: Alanine Aminotransferase 25 U/L (0-33); Albumin Level 4.4 g/dL (3.5-5.2); Alkaline Phosphatase 88 U/L (35-105); Anion Gap 13.4 (5-19); Aspartate Amino Transferase 23 U/L (0-32); Blood Urea Nitrogen 10 mg/dL (8-23); Calcium 9.4 mg/dL (8.5-10.5); Carbon Dioxide 28 mmol/L (22-29); Chloride 100 mmol/L (98-107); Globulin 2.5 g/dL (1.3-4.6); Glomerular Filtration Rate 71.5 mL/min (90-130); Glucose 101 mg/dL (65-115); Osmolality Calculated 283 mOsm/kg (285-295); Potassium 4.4 mmol/L (3.5-5.1); Sodium 137 mmol/L (136-145); Total Bilirubin 0.3 mg/dL (0.15-1.2); Total Protein 6.9 g/dL (6.6-8.7)
== END 2022-02-03 23:59 | disposition home or self-care (01) ==
PROVIDERS: PCP Family Medicine; Visit Provider Internal Medicine Hematology & Oncology
DX: Z08 Encounter for follow-up examination after completed treatment for malignant neoplasm (principal); Z85.3 Personal history of malignant neoplasm of breast; G62.9 Polyneuropathy, unspecified; F17.210 Nicotine dependence, cigarettes, uncomplicated; Z92.21 Personal history of antineoplastic chemotherapy; Z92.3 Personal history of irradiation
CPT/HCPCS: 36415; 80053; 85025; 99214

== ENCOUNTER 2022-02-14 13:13 | Outpatient (CLI) | payer MEDICARE, SELFPAY ==
--- NOTE | 2022-02-14 13:30 | XR_ITS ---
WS: [id number] DEXA (DUAL ENERGY X-RAY ABSORPTIOMETRY) Bone mineral density was performed using a [employer] machine. HISTORY: osteopenia COMPARISON: 05/02/2019 Lumbar spine BMD (L1-L4): 0.940 g/cm2 T score: -2.0 Z score: -0.8 Total hip BMD: Left: 0.837 g/cm2. T score: -1.4 Z score: -0.4 Right: 0.870 g/cm2. T score: -1.1 Z score: -0.1 10 year probability of a major osteoporotic fracture is 19.7%. Compared to the prior study from 05/02/2019. Lumbar spine bone mineral density has increased by 2.3%. Bilateral hips bone mineral density has decreased by 2.7%. XR/XR DEXA axial skeleton* [id number] IMPRESSION: OSTEOPENIA based upon the WHO classification for females. Significant decrease in bone mineral density within the hips since the prior . Bone mineral density in the lumbar spine has significantly increased.
== END 2022-02-14 13:14 | disposition home or self-care (01) ==
LOC: RAD 13:16
PROVIDERS: PCP Family Medicine; Visit Provider Family Medicine
DX: M85.80 Other specified disorders of bone density and structure, unspecified site (principal); Z78.0 Asymptomatic menopausal state
CPT/HCPCS: 77080

== ENCOUNTER → 2022-07-06 14:58 | Outpatient (BNVA) | payer MEDICARE, SELFPAY | PROVIDERS: PCP Family Medicine; Visit Provider Family Medicine | DX: R53.83 Other fatigue (principal); M85.80 Other specified disorders of bone density and structure, unspecified site | CPT/HCPCS: 80053; 82306; 82607; 82746; 84443; 85025 ==

== ENCOUNTER 2022-08-01 08:06 | Oncology outpatient (recurring) (ONCR) | payer MEDICARE, SELFPAY ==
[2022-08-01 08:49] LABS: Basophils % 0.5 %; Eosinophils # 0.1 10^3/uL (0.0-0.8); Eosinophils % 1.2 %; Hematocrit 39.7 % (37.0-47.0); Hemoglobin 13.3 g/dL (11.5-15.3); Lymphocytes # 1.2 10^3/uL (0.8-4.8); Lymphocytes % 18.2 %; Mean Corpuscular HGB Conc 33.5 g/dL (30.0-36.0); Mean Corpuscular Hemoglobin 33.4 pg (28.0-34.0); Mean Corpuscular Volume 99.7 fl (81-99); Mean Platelet Volume 9.7 fL (7.4-10.4); Monocytes # 0.5 10^3/uL (0.2-0.9); Monocytes % 8.2 %; Neutrophils # 4.61 10^3/uL (1.8-7.7); Neutrophils % 71.1 %; Nucleated Red Blood Cells % 0 %; Platelet Count 204 10^3/cmm (130-400); Red Blood Count 3.98 10^6/uL (4.1-5.3); Red Cell Distribution Width 12.5 % (12.1-15.1); White Blood Count 6.5 10^3/uL (4.0-10.0)
[2022-08-01 09:09] LABS: Alanine Aminotransferase 25 U/L (0-33); Albumin Level 4.1 g/dL (3.5-5.2); Alkaline Phosphatase 68 U/L (35-105); Anion Gap 13.4 (5-19); Aspartate Amino Transferase 25 U/L (0-32); Blood Urea Nitrogen 15 mg/dL (8-23); Calcium 8.9 mg/dL (8.5-10.5); Carbon Dioxide 27 mmol/L (22-29); Chloride 98 mmol/L (98-107); Globulin 2.5 g/dL (1.3-4.6); Glomerular Filtration Rate 71.5 mL/min (90-130); Glucose 102 mg/dL (65-115); Osmolality Calculated 279 mOsm/kg (285-295); Potassium 4.4 mmol/L (3.5-5.1); Sodium 134 mmol/L (136-145); Total Bilirubin 0.3 mg/dL (0.15-1.2); Total Protein 6.6 g/dL (6.6-8.7)
== END 2022-08-04 23:59 | disposition home or self-care (01) ==
LOC: ONCMED 08:06
PROVIDERS: Nurse Practitioner; PCP Family Medicine; Visit Provider Internal Medicine Hematology & Oncology
DX: Z08 Encounter for follow-up examination after completed treatment for malignant neoplasm (principal); Z85.3 Personal history of malignant neoplasm of breast; M89.9 Disorder of bone, unspecified; Z92.21 Personal history of antineoplastic chemotherapy; Z92.3 Personal history of irradiation
CPT/HCPCS: 36415; 80053; 85025; 99213